=== PATIENT | male | born 1990 | race Caucasian/White ===

== ENCOUNTER 2017-08-29 17:18 | Emergency (ER) | payer OTHER ==
[~2017-08-29] VITALS: Ht 177.8 cm; Wt 121.5 kg
[~2017-08-29 17:18] MED LIST: DONNATAL1 TABLET PO; PROTONIX40 MG PO
[2017-08-29 17:42] LABS: HEMATOCRIT 47.7 % (38.0-50.0); MCH 30.5 PG (29.0-34.0); MCV 89.8 FL (86-99); MEAN PLAT.VOLUME 11.3 uM^3 (9.0-12.4); PLATELET COUNT 221 K/uL (156-360); RBC DIS.WIDTH-CV 12.9 % (11.8-14.6); RBC DIS.WIDTH-SD 42.4 % (39-53); RED BLOOD COUNT 5.31 M/uL (4.00-5.50); WHITE BLOOD COUNT 9.5 K/uL (4.1-10.2)
[2017-08-29 17:50] LABS: CHLORIDE 104 mEq/L (99-109); POTASSIUM 4.1 mEq/L (3.7-5.4); SODIUM 137 mEq/L (136-147)
[2017-08-29 17:51] LABS: GLUCOSE 102 mg/dL (70-99)
[2017-08-29 17:53] LABS: ANION GAP 9 MEQ/L (2-14)
[2017-08-29 17:55] LABS: GFR ESTIMATE (CALCULATED) > 59 mL/min/
[2017-08-29 17:56] LABS: UREA NITROGEN (BUN) 11 mg/dL (9-23)
[2017-08-29 18:02] LABS: TROP-I INTERPRETATION NEGATIVE; TROPONIN-I < 0.01 ng/mL (0.0-0.30)
[2017-08-29 18:17] LABS: LIPASE 15 U/L (1.0-51.0)
[2017-08-29 21:13] LABS: TROP-I INTERPRETATION NEGATIVE; TROPONIN-I < 0.01 ng/mL (0.0-0.30)
[2017-08-29] MEDS ORDERED: MOTRIN800 MG PO (21:40)
[2017-08-29] MEDS ORDERED: FLEXERIL10 MG PO (21:40)
[2017-08-29 22:16] VITALS: BP 140/73
== END 2017-08-29 22:18 | disposition home or self-care (01) ==
LOC: EME 17:18
PROVIDERS: Nurse Practitioner Family
DX: M25.512 Pain in left shoulder (principal); M79.602 Pain in left arm
CPT/HCPCS: 71020; 80048; 83690; 84484; 85027; 93005; 99281; 99284